=== PATIENT | female | born 1965 | race Caucasian/White ===

== ENCOUNTER 2016-10-21 19:11 | Emergency (ER) | payer OTHER ==
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
--- NOTE | 2016-10-21 21:20 | ED MAR SUMMARY ---
..... Medication Administration Record Formerly [facility] [address] [place], [place] [id number] Patient: HERNAN DAVALOS Visit ID: [id number] 51y, F Weight: 58.0 kg Height/Length: 67 in BMI: 20 ALLERGIES: Codeine, Iodine, Vancomycin
--- NOTE | 2016-10-21 21:20 | ED MED RECONCILIATION SUMMARY ---
Patient: HERNAN DAVALOS Medication Reconciliation Report [facility] VisitID: [id number] [address] [place] [address] 51y, F Registration Date/Time: 10/21/2016 Weight: 58.0 kg Height/Length: 67 in. BMI: 20.0 ALLERGIES: Codeine, Iodine, Vancomycin The patient's Home Medications are listed below: THE FOLLOWING MEDICATIONS NEED TO BE RECONCILED: Methadone HCl Oral PredniSONE (Tee) Oral The source(s) of the original Home Medication information: Not obtained. The following Medications were given to the patient in the Emergency Department: None. The following Medications were prescribed to the patient: Naproxen 500 mg tablets: take 1 orally every 12 hours as needed for pain. Dispense twenty (20). No refills. -- My Briseno A.R.N.P. Flexeril 10 mg: Take 1 orally every 8 hours as needed for muscle spasm. Dispense twenty (20). No refills. Substitution is permissible. -- My Briseno A.R.N.P.
--- NOTE | 2016-10-21 21:20 | ED MAR SUMMARY ---
..... Medication Administration Record [facility] [address] [place], [place] [id number] Patient: HERNAN DAVALOS Visit ID: [id number] 51y, F Weight: 58.0 kg Height/Length: 67 in BMI: 20 ALLERGIES: Codeine, Iodine, Vancomycin
--- NOTE | 2016-10-21 21:20 | ED MED RECONCILIATION SUMMARY ---
Patient: HERNAN DAVALOS Medication Reconciliation Report [facility] VisitID: [id number] [address] [place] [address] 51y, F Registration Date/Time: 10/21/2016 Weight: 58.0 kg Height/Length: 67 in. BMI: 20.0 ALLERGIES: Codeine, Iodine, Vancomycin The patient's Home Medications are listed below: THE FOLLOWING MEDICATIONS NEED TO BE RECONCILED: Methadone HCl Oral PredniSONE (Tee) Oral The source(s) of the original Home Medication information: Not obtained. The following Medications were given to the patient in the Emergency Department: None. The following Medications were prescribed to the patient: Naproxen 500 mg tablets: take 1 orally every 12 hours as needed for pain. Dispense twenty (20). No refills. -- My Briseno A.R.N.P. Flexeril 10 mg: Take 1 orally every 8 hours as needed for muscle spasm. Dispense twenty (20). No refills. Substitution is permissible. -- My Briseno A.R.N.P.
== END 2016-10-21 20:00 | disposition home or self-care (01) ==
LOC: ED SRH 19:11
DX: S16.1XXA Strain of muscle, fascia and tendon at neck level, initial encounter (principal); S39.012A Strain of muscle, fascia and tendon of lower back, initial encounter; V43.52XA Car driver injured in collision with other type car in traffic accident, initial encounter; Y93.89 Activity, other specified; F17.200 Nicotine dependence, unspecified, uncomplicated; Z79.899 Other long term (current) drug therapy; Z91.041 Radiographic dye allergy status; Z88.1 Allergy status to other antibiotic agents